=== PATIENT | female | born 1965 | race African-American/Black ===

== ENCOUNTER 2016-11-09 13:13 | Emergency (ER) | payer OTHER ==
[~2016-11-09] VITALS: Ht 172.7 cm; Wt 127.0 kg
[2016-11-09 15:35] VITALS: BP 114/69
== END 2016-11-09 15:35 | disposition home or self-care (01) ==
LOC: EME 13:13
DX: E78.5 Hyperlipidemia, unspecified (principal); I10 Essential (primary) hypertension; Z95.0 Presence of cardiac pacemaker
CPT/HCPCS: 99281; 99284

== ENCOUNTER 2016-12-17 18:19 | Emergency (ER) | payer OTHER ==
[~2016-12-17] VITALS: Ht 162.6 cm; Wt 126.9 kg
[2016-12-17 18:56] LABS: HEMATOCRIT 39.8 % (36.0-46.0); MCH 28.7 PG (29.0-34.0); MCHC 33.7 G/DL (30.0-36.0); MCV 85.2 FL (83-99); MEAN PLAT.VOLUME 11.4 uM^3 (9.5-12.4); PLATELET COUNT 154 K/uL (156-360); RBC DIS.WIDTH-CV 13.3 % (11.8-14.6); RBC DIS.WIDTH-SD 41.3 % (39-53); RED BLOOD COUNT 4.67 M/uL (3.80-5.20); WHITE BLOOD COUNT 6.5 K/uL (4.1-10.2)
[2016-12-17 19:08] LABS: CHLORIDE 100 mEq/L (99-109); POTASSIUM 3.4 mEq/L (3.7-5.4); SODIUM 141 mEq/L (136-147)
[2016-12-17 19:10] LABS: GLUCOSE 101 mg/dL (70-99)
[2016-12-17 19:11] LABS: ANION GAP 13 MEQ/L (2-14)
[2016-12-17 19:14] LABS: GFR ESTIMATE (CALCULATED) > 59 mL/min/
[2016-12-17 19:15] LABS: UREA NITROGEN (BUN) 22 mg/dL (9-23)
[2016-12-17] MEDS ORDERED: FLEXERIL10 MG PO (19:33)
[2016-12-17] MEDS ORDERED: NAPROSYN500 MG PO (19:33)
[2016-12-17 20:30] VITALS: BP 117/72
== END 2016-12-17 20:31 | disposition home or self-care (01) ==
LOC: EME 18:19
DX: R25.2 Cramp and spasm (principal); E78.5 Hyperlipidemia, unspecified; I10 Essential (primary) hypertension
CPT/HCPCS: 71020; 80048; 85027; 99281; 99283